=== PATIENT | female | born 1995 | race African-American/Black ===

== ENCOUNTER 2022-07-18 14:33 | Inpatient (IN) | payer MEDICAID, OTHER ==
--- NOTE | 2022-07-18 16:11 | XR ---
EXAMINATION TYPE: XR chest 2V DATE OF EXAM: 07/18/2022 4:02 PM COMPARISON: None TECHNIQUE: XR chest 2V Frontal and lateral views of the chest. CLINICAL INDICATION:Female, 27 years old with history of Chest pain; FINDINGS: Lungs/Pleura: There is no evidence of pleural effusion, focal consolidation, or pneumothorax. Pulmonary vascularity: Unremarkable. Heart/mediastinum: Cardiomediastinal silhouette is unremarkable. Musculoskeletal: No acute osseous pathology. IMPRESSION: No acute cardiopulmonary disease/process.
[2022-07-18 16:23] LABS: Amphetamine Screen,Urine Not Detected (NotDetected); Barbiturate Screen,Urine Not Detected (NotDetected); Benzodiazepines Screen,Urine Not Detected (NotDetected); Cocaine Screen,Urine Not Detected (NotDetected); Methadone Screen, Urine Not Detected (NotDetected); Opiate Screen,Urine Not Detected (NotDetected); Oxycodone Screen, Urine Not Detected (NotDetected); Phencyclidine Screen,Urine Not Detected (NotDetected); Tricyclic Antidepressant,Urine Not Detected (NotDetected); Urn Cannabinoid Scrn Detected (NotDetected)
[2022-07-18] MEDS ORDERED: IBUPROFEN ORAL SUSP 100 MG/5 ML CUP PO ONE (16:42)
--- NOTE | 2022-07-18 16:50 | ED ---
Psych HPI - General Chief Complaint: Psychiatric Symptoms Stated Complaint: EPS eval Time Seen by Provider: 07/18/22 14:58 Source: patient, EMS, RN notes reviewed Mode of arrival: EMS - History of Present Illness Initial Comments: 19-year-old female brought in by EMS for complaints of feeling suicidal she does have a history of schizophrenia she states she is hearing voices and believes people are trying to get her and her over. She states she's been suicidal and depressed for about the last 1825 hrs. Any drug or alcohol use at this time. No other current complaints or modifying factors other than some slight left- sided chest pain. MD Complaint: suicidal ideation, feels depressed, other - Related Data Home Medications Medication Instructions Recorded Confirmed Nicotine 21Mg/24Hr Patch [Habitrol] 1 patch TRANSDERM DAILY PRN 07/18/22 07/18/22 Allergies Allergy/AdvReac Type Severity Reaction Status Date / Time trazodone AdvReac Unknown Verified 07/18/22 17:24 Review of Systems ROS Statement: Those systems with pertinent positive or pertinent negative responses have been documented in the HPI. ROS Other: All systems not noted in ROS Statement are negative. Past Medical History Past Medical History: No Reported History History of Any Multi-Drug Resistant Organisms: None Reported Past Surgical History: Orthopedic Surgery Past Psychological History: Bipolar, Depression, Schizophrenia Smoking Status: Current every day smoker Past Alcohol Use History: Abuse Past Drug Use History: Cocaine, Marijuana General Exam - General Exam Comments Initial Comments: This is a well-developed well-nourished awake alert oriented 4 female Limitations: no limitations General appearance: alert, anxious Head exam: Present: atraumatic, normocephalic, normal inspection Eye exam: Present: normal appearance, PERRL, EOMI. Absent: scleral icterus, conjunctival injection, periorbital swelling ENT exam: Present: normal exam, mucous membranes moist Neck exam: Present: normal inspection, full ROM, other (No stridor JVD or bruits). Absent: tenderness, meningismus, lymphadenopathy Respiratory exam: Present: normal lung sounds bilaterally, chest wall tenderness. Absent: respiratory distress, wheezes, rales, rhonchi, stridor Cardiovascular Exam: Present: regular rate, normal rhythm, normal heart sounds. Absent: systolic murmur, diastolic murmur, rubs, gallop, clicks GI/Abdominal exam: Present: soft, normal bowel sounds. Absent: distended, tenderness, guarding, rebound, rigid Extremities exam: Present: normal inspection, full ROM, normal capillary refill. Absent: tenderness, pedal edema, joint swelling, calf tenderness Back exam: Present: normal inspection Neurological exam: Present: alert, oriented X3, CN II-XII intact Psychiatric exam: Present: depressed, flat affect, suicidal ideation Skin exam: Present: warm, dry, intact, normal color. Absent: rash Course Vital Signs 07/18/22 14:48 Pulse Rate 87 Respiratory 18 Rate Blood Pressure 134/91 O2 Sat by Pulse 94 L Oximetry Medical Decision Making - Medical Decision Making The patient was evaluated by the EPS service and will be admitted for inpatient evaluation and treatment - Lab Data Lab Results 07/18/22 07/18/22 Range/Units 16:00 16:00 Urine HCG, Qual Not Detected (Not Detectd) Urine Opiates Screen Not Detected (NotDetected) Ur Oxycodone Screen Not Detected (NotDetected) Urine Methadone Screen Not Detected (NotDetected) Ur Propoxyphene Screen Not Detected (NotDetected) Ur Barbiturates Screen Not Detected (NotDetected) U Tricyclic Antidepress Not Detected (NotDetected) Ur Phencyclidine Scrn Not Detected (NotDetected) Ur Amphetamines Screen Not Detected (NotDetected) U Methamphetamines Scrn Not Detected (NotDetected) U Benzodiazepines Scrn Not Detected (NotDetected) Urine Cocaine Screen Not Detected (NotDetected) U Marijuana (THC) Screen Detected H (NotDetected) - EKG Data -: EKG Interpreted by Ks EKG shows normal: sinus rhythm, axis, intervals, QRS complexes, ST-T waves (Normal sinus rhythm rate is 67. Interval 148 QRS rate is 74 QT since QTC 395/410 st-t wave changes) Rate: normal - Radiology Data Radiology results: report reviewed (Imaging unremarkable wheezing. Report), image reviewed Disposition Clinical Impression: Depression, Suicidal ideation Disposition: TRANSFER TO PSYCH HOSP/UNIT Condition: Stable Referrals: None,Stated [Primary Care Provider] - 1-2 days Decision Date: 07/18/22 Decision Time: 18:18
[2022-07-18] MEDS ORDERED: ACETAMINOPHEN TAB 325 MG TAB PO STA (19:22)
[2022-07-18] MEDS ORDERED: MAGNESIUM HYDROXIDE 2,400 MG/10 ML CUP PO PRN (21:45)
[2022-07-18] MEDS ORDERED: MAG HYDROX/AL HYDROX/SIMETH 30 ML CUP PO PRN (21:45)
[2022-07-18] MEDS ORDERED: OLANZapine 5 MG TAB PO PRN (21:47)
[2022-07-18] MEDS ORDERED: OLANZapine 10 MG VIAL IM PRN (21:47)
[2022-07-18] MEDS ORDERED: hydrOXYzine HCL 50 MG/ML 1 ML VIAL IM PRN (21:49)
[2022-07-18 23:37] LABS: Appearance,Urine Cloudy (Clear); Bacteria,Urine Occasional /hpf; Bilirubin,Urine Negative (Negative); Blood,Urine Large (Negative); Color,Urine Yellow; Glucose,Urine (UA) Negative (Negative); Ketones,Urine 2+ (Negative); Leukocyte Esterase,Urine Large (Negative); Mucus,Urine Few /hpf; Nitrite,Urine Negative (Negative); PH, Urine 5.5 (5.0-8.0); Protein,Urine 1+ (Negative); RBC,Urine >182 /hpf (0-5); Specific Gravity,Urine 1.022 (1.001-1.035); Squamous Epithelial Cell,Urine 33 /hpf (0-4); WBC,Urine 88 /hpf (0-5)
--- NOTE | 2022-07-19 05:59 | P.MDCNMH ---
History of Present Illness H&P Date: 07/19/22 Chief Complaint: Medical evaluation 27-year-old female with schizophrenia Patient comes in due to acute psychosis with hallucinations and suicidal ideation. Currently denies any medical concerns denies any fevers chills nausea vomiting chest pain trouble breathing abdominal pain denies any urinary or bowel habit changes. She is currently on her period. Workup in the ED urine sample was contaminated Patient admits to tobacco smoking, denies any illicit drugs or alcohol Review of Systems Pertinent positives as noted in HPI. All other systems were reviewed and are negative Past Medical History Past Medical History: No Reported History History of Any Multi-Drug Resistant Organisms: None Reported Past Surgical History: Orthopedic Surgery Past Psychological History: Bipolar, Depression, Schizophrenia Smoking Status: Current every day smoker Past Alcohol Use History: Abuse Past Drug Use History: Cocaine, Marijuana - Past Family History Family Additional Family Medical History / Comment(s): Denies any premature CAD in the family Medications and Allergies Home Medications Medication Instructions Recorded Confirmed Type Nicotine 21Mg/24Hr Patch [Habitrol] 1 patch TRANSDERM DAILY PRN 07/18/22 07/18/22 History Allergies Allergy/AdvReac Type Severity Reaction Status Date / Time trazodone AdvReac Unknown Verified 07/18/22 22:05 Physical Exam Vitals: Vital Signs Temp Pulse Pulse Resp BP BP Pulse Ox 07/18/22 22:30 97.1 F L 70 15 104/67 99 07/18/22 14:48 87 18 134/91 94 L Intake and Output 07/18/22 07/18/22 07/19/22 14:59 22:59 06:59 Other: Weight 77.111 kg 63.106 kg Constitutional: No acute distress, patient is sleepy but arousable Eyes: Anicteric sclerae, moist conjunctiva, Pupils equal round reactive to light ENMT: NC/AT Oropharynx clear, no erythema, or exudates Neck: Supple, no masses, or JVD No carotid bruits No thyromegaly Lungs: Clear to auscultation Clear to percussion Normal respiratory effort, no accessory muscle use Cardiovascular: Heart regular in rate and rhythm, No murmurs, gallops, or rubs No peripheral edema Abdominal: Soft Nontender, no guarding, rebound or rigidity Abdomen moving with respiration Normoactive bowel sounds No hepatomegaly, No splenomegaly No palpable mass No abdominal wall hernia noted Skin: Normal temperature, tone, texture, turgor No induration No subcutaneous nodules No rash, lesions No ulcers Extremities: No digital cyanosis No clubbing Pedal pulses intact and symmetrical Radial pulses intact and symmetrical No calf tenderness Psychiatric: Alert and oriented to person, place and time Neuro Muscles Strength 5/5 in all 4 extremities Sensation to light touch grossly present throughout Cranial nerves II-XII grossly intact No focal sensory deficits Lymphatics: no palpable cervical or supraclavicular , or inguinal lymph nodes Cranial Nerve Examination - Cranial Nerves Cranial Nerve II- Optic: Intact Cranial Nerve III- Oculomotor: Intact Cranial Nerve IV- Trochlear: Intact Cranial Nerve V- Trigeminal: Intact Cranial Nerve - Abducens: Intact Cranial Nerve VII- Facial: Intact Cranial Nerve VIII- Auditory: Intact Cranial Nerve IX- Glossopharyngeal: Intact Cranial Nerve X- Vagus: Intact Cranial Nerve XI- Accessory: Intact Cranial Nerve XII- Hypoglossal: Intact Results Labs: Abnormal Lab Results - Last 24 Hours (Table) 07/18/22 07/18/22 Range/Units 16:00 21:45 Urine Appearance Cloudy H (Clear) Urine Protein 1+ H (Negative) Urine Ketones 2+ H (Negative) Urine Blood Large H (Negative) Ur Leukocyte Esterase Large H (Negative) Urine RBC >182 H (0-5) /hpf Urine WBC 88 H (0-5) /hpf Urine WBC Clumps Few H (None) /hpf Ur Squamous Epith Cells 33 H (0-4) /hpf Urine Bacteria Occasional H (None) /hpf Urine Mucus Few H (None) /hpf U Marijuana (THC) Screen Detected H (NotDetected) Assessment and Plan Assessment: Acute psychosis Schizophrenia Suicidal ideation Management per psych Tobacco smoking Counseled to quit smoking Nicotine replacement therapy No medical concerns reported by the patient Follow-up labs Thank you for allowing us to participate in the care of this patient. We will follow peripherally. Do not hesitate to contact us with questions. Someone can be reached from the [facility] hospitalist group at all hours of the day at [phone].
[2022-07-19] MEDS: NICOTINE 7MG/24HR PATCH TRANSDERM SCH (10:08)
[2022-07-19] MEDS ORDERED: ARIPiprazole 5 MG TAB PO STA (10:38)
[2022-07-19 11:19] LABS: Basophils % (A) 1 %; Eosinophils % (A) 1 %; HCT 47.3 % (34.0-46.0); HGB 14.7 gm/dL (11.4-16.0); Lymphocytes # (A) 0.8 k/uL (1.0-4.8); Lymphocytes % (A) 34 %; MCH 25.1 pg (25.0-35.0); MCHC 31.1 g/dL (31.0-37.0); MCV 80.9 fL (80.0-100.0); Monocytes # (A) 0.1 k/uL (0-1.0); Monocytes % (A) 6 %; Neutrophils # (A) 1.2 k/uL (1.3-7.7); Neutrophils % (A) 54 %; Platelet Count 183 k/uL (150-450); RBC 5.84 m/uL (3.80-5.40); RDW 13.1 % (11.5-15.5); WBC 2.2 k/uL (3.8-10.6)
[2022-07-19 11:42] LABS: ALT 15 U/L (4-34); AST 26 U/L (14-36); African American GFR (CKD) >90 (>60 ml/min/1.73 sqM); Albumin 4.8 g/dL (3.5-5.0); Alkaline Phosphatase 64 U/L (38-126); Anion Gap 12 mmol/L; Blood Urea Nitrogen 15 mg/dL (7-17); Calcium 9.4 mg/dL (8.4-10.2); Carbon Dioxide 26 mmol/L (22-30); Chloride 102 mmol/L (98-107); Glucose 81 mg/dL (74-99); Non-African American GFR(CKD) >90 (>60 ml/min/1.73 sqM); Potassium 4.6 mmol/L (3.5-5.1); Sodium 140 mmol/L (137-145); Total Bilirubin 0.7 mg/dL (0.2-1.3); Total Protein 8.5 g/dL (6.3-8.2)
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
[2022-07-19] MEDS: hydrOXYzine pamoate 25 MG CAP PO PRN ×2 (14:59→21:02)
[2022-07-19] MEDS: cloNIDine HCL 0.1 MG TAB PO SCH (21:02)
[2022-07-20] MEDS: ACETAMINOPHEN TAB 325 MG TAB PO PRN ×2 (04:47→13:52)
[2022-07-20] MEDS: NICOTINE 7MG/24HR PATCH TRANSDERM SCH (08:11)
[2022-07-20] MEDS: cloNIDine HCL 0.1 MG TAB PO SCH ×2 (09:50→20:57)
[2022-07-20 10:28] LABS: Basophils % (A) 1 %; Eosinophils % (A) 1 %; HCT 44.3 % (34.0-46.0); HGB 14.1 gm/dL (11.4-16.0); Lymphocytes # (A) 0.8 k/uL (1.0-4.8); Lymphocytes % (A) 43 %; MCH 25.6 pg (25.0-35.0); MCHC 31.7 g/dL (31.0-37.0); MCV 80.6 fL (80.0-100.0); Mean Platelet Volume 9.9; Monocytes # (A) 0.2 k/uL (0-1.0); Monocytes % (A) 8 %; Neutrophils # (A) 0.8 k/uL (1.3-7.7); Neutrophils % (A) 45 %; Platelet Count 156 k/uL (150-450); WBC 1.9 k/uL (3.8-10.6)
--- NOTE | 2022-07-20 11:55 | P.PN ---
Progress Note - Text Progress Note Date: 07/20/22 Interval History: Patient was seen wandering the hallways and was directable and agreeable to speak with development writer in the office. Currently, the patient continues to report paranoid and bizarre delusions. She continues to feel like people are inserting thoughts into her head as well as controlling her body and emotions. She continues to report auditory hallucinations that tell her derogatory comments and statements in things to her. She denies any command type hallucinations. She reports no visual hallucinations. She denies any suicidal or homicidal ideation, intention, and/or plan. She reports mild sedation as a side effect of her medication. She reports no issues regarding her sleep or her appetite. She has been attending groups. Mental Status Exam: General Appearance: Patient appears to be stated age is alert, directable, and cooperative. Patient has a heart tattoo underneath her left eye. Behavior: Patient is calmly seated without any agitated behavior. Speech: Patient's speech is fluent and nonpressured. Mood/Affect: Mood is improving mildly, affect is congruent and constricted. Suicidality/Homicidality: Patient denies both suicidal and homicidal ideation. Perceptions: Patient denies any visual hallucinations but continues to endorse auditory hallucinations. Though content/process: The patient endorses multiple delusions including paranoia, thought insertion, ideas of reference, and control. Memory and concentration: AOX3, grossly intact for the purposes of this session Judgment and insight: Improving mildly Vital Signs Temp 97.3 F L 07/20/22 06:40 Pulse 101 H 07/20/22 09:52 Resp 18 07/20/22 06:40 BP 140/84 07/20/22 09:52 Pulse Ox 98 07/20/22 06:40 FiO2 Laboratory Results - Last 24 Hours 07/19/22 07/19/22 07/20/22 10:48 10:48 09:41 WBC 1.9 L RBC 5.50 H Hgb 14.1 Hct 44.3 MCV 80.6 MCH 25.6 MCHC 31.7 RDW 13.0 Plt Count 156 MPV 9.9 Neutrophils % 45 Lymphocytes % 43 Monocytes % 8 Eosinophils % 1 Basophils % 1 Neutrophils # 0.8 L Lymphocytes # 0.8 L Monocytes # 0.2 Eosinophils # 0.0 Basophils # 0.[address] Glu mg/dL 119 Hemoglobin A1c 5.8 TSH 0.982 Assessment Schizoaffective disorder, bipolar type Cocaine use disorder Tobacco use disorder Alcohol use disorder Cannabis use disorder Rule out PTSD Plan: -Patient continues to meet criteria for inpatient psychiatric admission for symptom stabilization and safety. Patient has signed adult voluntary form and medication consent and was placed in patient's chart. -TSH, B12, folate ordered -Medications: Continue Catapres 0.1 mg by mouth twice a day for PTSD We will start lithium 450 mg by mouth at bedtime for management of mood/psychotic symptoms. We are limited in our ability to utilize antipsychotics due to the patient's neutropenia. -When necessary Vistaril for agitation/aggression. -NRT - nicotine patch -SW on board for discharge planning. Encouraged the patient to participate in milieu.
[2022-07-20] MEDS: hydrOXYzine pamoate 25 MG CAP PO PRN (17:16)
[2022-07-20] MEDS ORDERED: LITHIUM CARBONATE ER 450 MG TABLET.ER PO SCH (21:00)
[2022-07-21] MEDS: ACETAMINOPHEN TAB 325 MG TAB PO PRN ×4 (01:48→20:59)
[2022-07-21] MEDS: hydrOXYzine pamoate 25 MG CAP PO PRN ×2 (01:48→20:59)
[2022-07-21] MEDS: NICOTINE 7MG/24HR PATCH TRANSDERM SCH (08:28)
[2022-07-21] MEDS: cloNIDine HCL 0.1 MG TAB PO SCH ×2 (08:29→20:15)
--- NOTE | 2022-07-21 10:27 | P.PN ---
Progress Note - Text Progress Note Date: 07/21/22 Interval History: Patient was seen wandering the hallways and was directable and agreeable to speak with technical report writer in the office. Currently, the patient is not reporting any suicidal or homicidal ideation however continues to endorse auditory hallucinations and paranoid delusions. She has been adherent with her medications and is not reporting any significant side effects at this time. The patient discussed that she does engage in unprotected sex. Furthermore, the patient does report a history of IV drug use. She is agreeable to HIV testing and states that she has never been tested before. She otherwise reports no issues regarding her sleep or her appetite. She has been attending groups level of participation. Mental Status Exam: General Appearance: Patient appears to be stated age is alert, directable, and cooperative. Patient has a heart tattoo underneath her left eye. Behavior: Patient is calmly seated without any agitated behavior. Speech: Patient's speech is fluent and nonpressured. Mood/Affect: Mood is improving mildly, affect is congruent and constricted. Suicidality/Homicidality: Patient denies both suicidal and homicidal ideation. Perceptions: Patient denies any visual hallucinations but continues to endorse auditory hallucinations. Though content/process: The patient endorses multiple delusions including paranoia, thought insertion, ideas of reference, and control. Memory and concentration: AOX3, grossly intact for the purposes of this session Judgment and insight: Improving mildly Vital Signs Temp 97.8 F 07/21/22 07:18 Pulse 84 07/21/22 07:18 Resp 14 07/21/22 07:18 BP 114/60 07/21/22 07:18 Pulse Ox 98 07/20/22 06:40 FiO2 Laboratory Results - Last 24 Hours 07/20/22 07/20/22 07/20/22 09:41 09:41 09:41 WBC 1.9 L RBC 5.50 H Hgb 14.1 Hct 44.3 MCV 80.6 MCH 25.6 MCHC 31.7 RDW 13.0 Plt Count 156 MPV 9.9 Neutrophils % 45 Lymphocytes % 43 Monocytes % 8 Eosinophils % 1 Basophils % 1 Neutrophils # 0.8 L Lymphocytes # 0.8 L Monocytes # 0.2 Eosinophils # 0.0 Basophils # 0.0 Vitamin B12 464.0 Folate 13.40 TSH 0.906 Assessment Schizoaffective disorder, bipolar type Cocaine use disorder Tobacco use disorder Alcohol use disorder Cannabis use disorder Rule out PTSD Plan: -Patient continues to meet criteria for inpatient psychiatric admission for symptom stabilization and safety. Patient has signed adult voluntary form and medication consent and was placed in patient's chart. -HIV test ordered. -Medications: Continue Catapres 0.1 mg by mouth twice a day for PTSD Increase lithium to 450 mg by mouth twice a day for management of mood/psychotic symptoms. We are limited in our ability to utilize antipsychotics due to the patient's neutropenia. [place] level ordered for Sunday. -When necessary Vistaril for agitation/aggression. -NRT - nicotine patch -SW on board for discharge planning. Encouraged the patient to participate in milieu.
[2022-07-21] MEDS: LITHIUM CARBONATE ER 450 MG TABLET.ER PO SCH (20:15)
[2022-07-22] MEDS: NICOTINE 7MG/24HR PATCH TRANSDERM SCH (08:31)
[2022-07-22] MEDS: ACETAMINOPHEN TAB 325 MG TAB PO PRN ×3 (08:32→20:51)
[2022-07-22] MEDS: cloNIDine HCL 0.1 MG TAB PO SCH ×2 (08:33→20:51)
[2022-07-22] MEDS: LITHIUM CARBONATE ER 450 MG TABLET.ER PO SCH ×2 (08:33→20:51)
--- NOTE | 2022-07-22 12:27 | P.PN ---
Progress Note - Text Progress Note Date: 07/22/22 Clinical Problems: Schizoaffective disorder bipolar type, cocaine use disorder, tobacco use disorder, alcohol use disorder, cannabis use disorder, rule out PTSD. Interim history: I reviewed the medical record and interviewed the patient. The patient denied problems or concerns other than where she would live after discharge. She requested assistance and searching for studio apartments in the [place] area. She denied feeling depressed or having thoughts of or suicide. She denied experiencing auditory, visual or olfactory hallucinations. She denied symptoms of alcohol withdrawal and showed no signs of alcohol withdrawal. She apparently attends therapeutic groups and activities. She sleeps 8 hours last night. Mental status exam: She presented as a thin casually groomed 27-year-old [place] female who was pleasant on approach. She made eye contact and attempted to interview. She had no prominent physical abnormalities. She had a blunted facial expression. She showed no abnormality of psychomotor activity. Her speech was spontaneous with decreased volume. Her affect was blunted but appropriate. She denied suicidal ideation, wishes or homicidal ideation. She denied feeling hopeless, helpless or worthless. Her thinking was organized and goal directed. She denied hallucinations did not appear to be responding to internal stimuli. Assessment: She appears much improved from admission with an apparent decrease in depression, suicidal thoughts and psychotic symptoms. Plan: Continue inpatient treatment. Safety precautions. Continue current psychotropic medications-lithium carbonate 4 and 50 mg twice a day and Vistaril 50 mg when necessary IM when necessary for anxiety. Nicotine for smoking cessation. Social work to coordinate discharge and aftercare. Encouraged continued participation in therapeutic groups and activities. Evaluate clinical status response treatment on a daily basis.
[2022-07-23] MEDS: cloNIDine HCL 0.1 MG TAB PO SCH ×2 (08:02→21:01)
[2022-07-23] MEDS: LITHIUM CARBONATE ER 450 MG TABLET.ER PO SCH ×2 (08:02→21:01)
[2022-07-23] MEDS: NICOTINE 7MG/24HR PATCH TRANSDERM SCH (08:03)
--- NOTE | 2022-07-23 13:42 | P.PN ---
Progress Note - Text Progress Note Date: 07/23/22 Clinical Problems: Schizoaffective disorder bipolar type, cocaine use disorder, tobacco use disorder, alcohol use disorder, cannabis use disorder, rule out PTSD. Interim history: I reviewed the medical record and interviewed the patient. She complained of sore throat and fever and chills. Her temperature was 97.9, pulse 61 and blood pressure 102/64. Her coronavirus PCR from a 07/21/2022 was negative She apparently attends therapeutic groups and activities. She sleeps 8 hours last night. Mental status exam: She presented as a thin casually groomed 27-year-old [place] female who was pleasant on approach. She made eye contact and attempted to interview. She had no prominent physical abnormalities. She had a blunted facial expression. She showed no abnormality of psychomotor activity. Her speech was spontaneous with decreased volume. Her affect was blunted but appropriate. She denied suicidal ideation, wishes or homicidal ideation. She denied feeling hopeless, helpless or worthless. Her thinking was organized and goal directed. She denied hallucinations did not appear to be responding to internal stimuli. Assessment: She has subjective complaints of sore throat fever and chills. Coronavirus negative. Plan: Continue inpatient treatment. Safety precautions. Continue current psychotropic medications-lithium carbonate 450 mg twice a day and Vistaril 50 mg when necessary IM when necessary for anxiety. Nicotine for smoking cessation. Social work to coordinate discharge and aftercare. Encouraged continued participation in therapeutic groups and activities. Evaluate clinical status response treatment on a daily basis.
[2022-07-23] MEDS: ACETAMINOPHEN TAB 325 MG TAB PO PRN (16:23)
[2022-07-24] MEDS: ACETAMINOPHEN TAB 325 MG TAB PO PRN ×2 (03:46→18:59)
[2022-07-24] MEDS: LITHIUM CARBONATE ER 450 MG TABLET.ER PO SCH ×2 (08:49→21:18)
[2022-07-24] MEDS: NICOTINE 7MG/24HR PATCH TRANSDERM SCH (08:50)
[2022-07-24] MEDS: cloNIDine HCL 0.1 MG TAB PO SCH ×2 (08:50→21:18)
[2022-07-24 10:09] LABS: Basophils % (A) 1 %; Eosinophils # (A) 0.1 k/uL (0-0.7); Eosinophils % (A) 2 %; HCT 44.2 % (34.0-46.0); Lymphocytes # (A) 0.9 k/uL (1.0-4.8); Lymphocytes % (A) 28 %; MCH 25.6 pg (25.0-35.0); MCHC 31.6 g/dL (31.0-37.0); MCV 80.9 fL (80.0-100.0); Mean Platelet Volume 10.2; Monocytes # (A) 0.2 k/uL (0-1.0); Monocytes % (A) 5 %; Neutrophils % (A) 62 %; Platelet Count 162 k/uL (150-450); RBC 5.46 m/uL (3.80-5.40); RDW 13.1 % (11.5-15.5); WBC 3.3 k/uL (3.8-10.6)
--- NOTE | 2022-07-24 11:29 | P.PN ---
Progress Note - Text Progress Note Date: 07/24/22 Interval History: Patient was seen wandering the hallways and was directable and agreeable to speak with bond writer in the office. Currently, the patient is not reporting any suicidal or homicidal ideation however continues to endorse auditory hallucinations and paranoid delusions. The patient reports that she continues to feel that people are controlling her thoughts but less so than before. She reports an improvement in sleep and an improvement in appetite. She does ex press concerns as to where she would be going upon discharge. She denies any anger or mood lability. She denies any confrontation with staff or peers. She has been adherent with her medications and is not endorsing any significant side effects at this time. She is denying any suicidal or homicidal ideation, intention, and/or plan. Mental Status Exam: General Appearance: Patient appears to be stated age is alert, directable, and cooperative. Patient has a heart tattoo underneath her left eye. Behavior: Patient is calmly seated without any agitated behavior. Speech: Patient's speech is fluent and nonpressured. Mood/Affect: Mood is improving mildly, affect is congruent and constricted. Suicidality/Homicidality: Patient denies both suicidal and homicidal ideation. Perceptions: Patient denies any visual hallucinations but continues to endorse auditory hallucinations. Though content/process: The patient continues to endorse delusional thoughts of control however less forthcoming with her delusions. Memory and concentration: AOX3, grossly intact for the purposes of this session Judgment and insight: Improving mildly Vital Signs Temp 97.2 F L 07/24/22 08:49 Pulse 61 07/23/22 09:00 Resp 20 07/24/22 08:49 BP 116/78 07/24/22 08:49 Pulse Ox 99 07/23/22 09:00 FiO2 Laboratory Results - Last 24 Hours 07/24/22 07/24/22 09:11 09:11 WBC 3.3 L RBC 5.46 H Hgb 14.0 Hct 44.2 MCV 80.9 MCH 25.6 MCHC 31.6 RDW 13.1 Plt Count 162 MPV 10.2 Neutrophils % 62 Lymphocytes % 28 Monocytes % 5 Eosinophils % 2 Basophils % 1 Neutrophils # 2.0 Lymphocytes # 0.9 L Monocytes # 0.2 Eosinophils # 0.1 Basophils # 0.0 [place] 0.7 Assessment Schizoaffective disorder, bipolar type Cocaine use disorder Tobacco use disorder Alcohol use disorder Cannabis use disorder Rule out PTSD Plan: -Patient continues to meet criteria for inpatient psychiatric admission for symptom stabilization and safety. Patient has signed adult voluntary form and medication consent and was placed in patient's chart. -HIV test ordered. Awaiting results. -Medications: Continue Catapres 0.1 mg by mouth twice a day for PTSD Continue [place] 450 mg by mouth twice a day for management of mood/psychotic symptoms. [place] level 0.7. We will hold at this dose. We are limited in our ability to utilize antipsychotics due to the patient's neutropenia. Mild improvement on recheck. -When necessary Vistaril for agitation/aggression. -NRT - nicotine patch -SW on board for discharge planning. Encouraged the patient to participate in milieu.
[2022-07-25] MEDS: cloNIDine HCL 0.1 MG TAB PO SCH (08:23)
[2022-07-25] MEDS: LITHIUM CARBONATE ER 450 MG TABLET.ER PO SCH (08:23)
[2022-07-25] MEDS: NICOTINE 7MG/24HR PATCH TRANSDERM SCH (08:24)
[2022-07-25 11:05] LABS: HIV-1 RNA Not detected (Not detected)
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
[2022-07-25 15:12] VITALS: BP 100/64; PULSE 87; RESP 16; TEMP 98.1
== END 2022-07-25 14:30 | disposition home or self-care (01) | DRG 885 ==
LOC: EC 14:33 → 3MHU 21:40
PROVIDERS: ADMIT Psychiatry & Neurology Psychiatry; ATTEND Psychiatry & Neurology Psychiatry
DX: F25.0 Schizoaffective disorder, bipolar type (principal); R45.851 Suicidal ideations; D70.9 Neutropenia, unspecified; F10.10 Alcohol abuse, uncomplicated; F12.10 Cannabis abuse, uncomplicated; F14.10 Cocaine abuse, uncomplicated; F17.210 Nicotine dependence, cigarettes, uncomplicated; F43.10 Post-traumatic stress disorder, unspecified; Z59.00 Homelessness unspecified; Z63.72 Alcoholism and drug addiction in family; Z79.899 Other long term (current) drug therapy; Z81.1 Family history of alcohol abuse and dependence; Z91.51 Personal history of suicidal behavior; Z56.0 Unemployment, unspecified; Z20.822 Contact with and (suspected) exposure to COVID-19
CPT/HCPCS: 71046; 80053; 80178; 80306; 81001; 81025; 82075; 82607; 82746; 83036; 84443; 85025; 87535; 87635; 93005

== ENCOUNTER 2022-08-05 23:59 | Inpatient (IN) | payer MEDICAID, OTHER ==
--- NOTE | 2022-08-06 01:46 | ED ---
Psych HPI - General Chief Complaint: Psychiatric Symptoms Stated Complaint: Mental Health, ETOH Time Seen by Provider: 08/06/22 00:59 Source: patient, police, RN notes reviewed, old records reviewed Mode of arrival: ambulatory Limitations: no limitations - History of Present Illness Initial Comments: This is a 19-year-old female presenting with alcohol intoxication and history of drug abuse. Patient comes in under police escort for evaluation regards to self harming behavior. A she was hitting her head against the wall. Patient also making suicidal threats MD Complaint: suicidal ideation, feels depressed -: minutes(s) Associated Psychiatric Symptoms: depression, suicidal ideation Quality: constant Improves With: none Worsens With: alcohol Context: significant life stressor Associated Symptoms: denies other symptoms Treatments Prior to Arrival: placed on mental health hold If Self Harm: admits thoughts of self harm, self-inflicted trauma - Related Data Previous Rx's Medication Instructions Recorded [place] Carbonate ER [Lithobid] 450 mg PO BID 15 Days tab 07/25/22 cloNIDine HCL [Catapres] 0.1 mg PO BID 15 Days tab 07/25/22 Allergies Allergy/AdvReac Type Severity Reaction Status Date / Time trazodone AdvReac Unknown Verified 08/06/22 00:41 Review of Systems ROS Statement: Those systems with pertinent positive or pertinent negative responses have been documented in the HPI. ROS Other: All systems not noted in ROS Statement are negative. Past Medical History Past Medical History: No Reported History History of Any Multi-Drug Resistant Organisms: None Reported Past Surgical History: Orthopedic Surgery Past Psychological History: Bipolar, Depression, Schizophrenia Smoking Status: Current every day smoker Past Alcohol Use History: Abuse Past Drug Use History: Cocaine, Marijuana - Past Family History Family Additional Family Medical History / Comment(s): Denies any premature CAD in the family General Exam Limitations: no limitations General appearance: alert, in no apparent distress Head exam: Present: atraumatic, normocephalic, normal inspection Eye exam: Present: normal appearance, PERRL, EOMI. Absent: scleral icterus, conjunctival injection, periorbital swelling ENT exam: Present: normal exam, mucous membranes moist Neck exam: Present: normal inspection. Absent: tenderness, meningismus, lymphadenopathy Respiratory exam: Present: normal lung sounds bilaterally. Absent: respiratory distress, wheezes, rales, rhonchi, stridor Cardiovascular Exam: Present: regular rate, normal rhythm, normal heart sounds. Absent: systolic murmur, diastolic murmur, rubs, gallop, clicks GI/Abdominal exam: Present: soft, normal bowel sounds. Absent: distended, tenderness, guarding, rebound, rigid Extremities exam: Present: normal inspection, full ROM, normal capillary refill. Absent: tenderness, pedal edema, joint swelling, calf tenderness Back exam: Present: normal inspection Neurological exam: Present: alert, oriented X3, CN II-XII intact Psychiatric exam: Present: normal affect, normal mood Skin exam: Present: warm, dry, intact, normal color. Absent: rash Course Vital Signs 08/06/22 00:36 Temperature 98.2 F Pulse Rate 73 Respiratory 22 Rate Blood Pressure 114/84 O2 Sat by Pulse 100 Oximetry - Reevaluation(s) Reevaluation #1: 08/06/22 04:51 Medical record is reviewed Reevaluation #2: 08/06/22 04:51 Medical clear for psychiatric evaluation Medical Decision Making - Medical Decision Making 27-year-old female presented today for psychiatric evaluation. Patient be admitted for psychiatric evaluation and treatment is Disposition Clinical Impression: Suicidal ideation, Alcohol use disorder, Schizoaffective disorder, bipolar type, Depression Disposition: ADMITTED IP TO THIS HOSP Condition: Fair Is patient prescribed a controlled substance at d/c from ED?: No Referrals: None,Stated [Primary Care Provider] - 1-2 days
[2022-08-06] MEDS ORDERED: MAG HYDROX/AL HYDROX/SIMETH 30 ML CUP PO PRN (06:52)
[2022-08-06] MEDS ORDERED: LORazepam 1 MG TAB PO PRN (06:52)
[2022-08-06] MEDS ORDERED: MAGNESIUM HYDROXIDE 2,400 MG/10 ML CUP PO PRN (06:52)
[2022-08-06] MEDS ORDERED: LORazepam 2 MG/ML INJ IM PRN (06:56)
[2022-08-06] MEDS ORDERED: HALOPERIDOL LACTATE 5 MG/ML 1 ML VIAL IM PRN (06:57)
[2022-08-06] MEDS ORDERED: haloperidoL 5 MG TAB PO PRN (06:57)
[2022-08-06] MEDS: NICOTINE 14MG/24HR PATCH TRANSDERM SCH (13:22)
--- NOTE | 2022-08-06 16:54 | P.HP ---
Psychiatric H&P - . H&P Date: 08/06/22 History & Physical: IDENTIFYING DATA: Patient is a single, unemployed, 27-year-old -Ang[place] female who presents to our hospital for self-harm behaviors and suicidal threats. HPI: Patient presented to the hospital on 08/06/2022 via police escort for evaluation of self-harming behavior consisting of hitting her head against the wall and also making suicidal threats. She was recently discharged from [facility] on 07/25/2022 on Tarboro ER 450 mg BID and Clonidine 0.1 mg BID. She states she did not continue these medication after discharge because she lost her bag on her way home from the hospital, so she has been without her medicati ons. She reports hearing 3 voices, reports seeing shadowy figures. She denies command auditory hallucinations. She reports she was intoxicated yesterday, started hitting her head, and was brought to the hospital. She states she is also homeless. She endorses suicidal ideation but denies plan or intent. She denies homicidal ideation. Patient denies any flight of ideas racing thoughts and increased in goal directed behavior. Patient admits to using alcohol and drinking a pint of liquor yesterday; states she does not drink daily. She reports her last cocaine use was early June. She uses marijuana daily and last smoked yesterday. She smokes tobacco about 0.5 ppd. PAST PSYCHIATRIC HISTORY: Patient states that she has a previous diagnosis of schizophrenia, bipolar disorder and polysubstance abuse. Previous medications include Abilify, Abilify Maintena, Risperdal, Tarboro, Clonidine, Trazodone. She reports at least 30 inpatient psychiatric hospitalization since 2016. She was recently hospitalized at [facility] from 07/18-07/25/2022. She was previously open with [facility] in [place] however states that she has not seen them since last October. She reports multiple attempts at suicide with the last time being in 2017 when she jumped off a bridge. PMH: Past Medical History: No Reported History History of Any Multi-Drug Resistant Organisms: None Reported Past Surgical History: Orthopedic Surgery Past Psychological History: Bipolar, Depression, Schizophrenia Smoking Status: Current every day smoker Past Alcohol Use History: Abuse Past Drug Use History: Cocaine, Marijuana ALLERGIES: as per EMR CHEMICAL DEPENDENCY HISTORY: as per HPI FAMILY PSYCHIATRIC/SUBSTANCE USE HISTORY: She does report that her father was an alcoholic. SOCIAL HISTORY: Patient was born and raised in [place], [place]. She was previously staying in [place] however is currently homeless. She has no source of income. Her mother when she was 1 years old. She reports that her father is a drug dealer. She states that she has 4 sisters and one brother however has little to no family support. She states that she first went to inpatient substance-abuse rehabilitation in 2016. The patient graduated high school and attended some college. MENTAL STATUS EXAM: General Appearance: Patient appears to be stated age, heart shaped tattoo under eye, dressed in hospital gown, fair hygiene. Behavior: Patient is seated without any agitated behavior. Speech: Patient's speech is soft, mumbled and nonpressured. Mood/Affect: Patient reports their mood is depressed, affect is congruent and c onstricted. Suicidality/Homicidality: Patient denies having any homicidal ideation intent or plan. She endorses suicidal ideation, but no intent or plan] Perceptions: Patient endorses visual hallucinations of shadows and endorses auditory hallucinations of voices. Though content/process: There is no evidence of any delusional thought content and thought process is linear and goal-directed. Memory and concentration: AOX3, grossly intact for the purposes of this session. Judgment and insight: poor STRENGTHS/WEAKNESSES: strength is that patient is resilient. Weakness is that patient has polysubstance abuse and noncompliance with treatment. INTELLECT: Average IMPRESSIONS: Schizoaffective disorder, bipolar type Cocaine use disorder Tobacco use disorder Alcohol use disorder Cannabis use disorder Rule out PTSD PLAN: -Patient is admitted under voluntary status to [facility] for stabilization of psychiatric symptoms and safety. Patient has signed adult voluntary form and is placed in patient's chart. -Medications: Restart Tarboro 450 mg by mouth twice a day for mood stabilization. -Ativan and Haldol PRN for agitation/aggression -Patient was counseled on substance abuse and desired to cut back on use -Patient was informed of the risks, benefits and side effects of the medication and patient verbally consented to taking the medications. Patient signed med consent form and was placed in chart. -Internal Medicine consult to perform medical evaluation and physical. -NRT - nicotine patch -SW on board for discharge planning. Encourage patient to participate in groups to work on coping skills. Allergies Allergy/AdvReac Type Severity Reaction Status Date / Time trazodone AdvReac Unknown Verified 08/06/22 00:41 Vital Signs Temp 97.6 F 08/06/22 08:54 Pulse 92 08/06/22 08:54 Resp 18 08/06/22 08:54 BP 114/77 08/06/22 08:54 Pulse Ox 95 08/06/22 08:54 FiO2 Intake & Output 08/05/22 08/06/22 08/06/22 18:59 06:59 18:59 Weight 80.286 kg 63.3 kg Laboratory Last Values Coronavirus (PCR) Not Detected (Not Detectd) 08/06/22 05:55 08/06/22 16:33 08/06/22 16:51
[2022-08-06] MEDS: LITHIUM CARBONATE 150 MG CAP PO SCH (20:46)
--- NOTE | 2022-08-07 03:18 | P.PN ---
Progress Note - Text Progress Note Date: 08/06/22 Attempted to see the patient on 08/06 at 2100 in the mental health unit. The patient refused to be seen or be evaluated.
[2022-08-07 06:45] VITALS: RESP 16
[2022-08-07] MEDS: LITHIUM CARBONATE 150 MG CAP PO SCH ×2 (09:13→20:25)
[2022-08-07] MEDS: NICOTINE 14MG/24HR PATCH TRANSDERM SCH (09:14)
[2022-08-07] MEDS: ACETAMINOPHEN TAB 325 MG TAB PO PRN (20:25)
[2022-08-08 06:40] VITALS: TEMP 98.1
[2022-08-08] MEDS: NICOTINE 14MG/24HR PATCH TRANSDERM SCH (09:34)
[2022-08-08] MEDS: LITHIUM CARBONATE 150 MG CAP PO SCH ×2 (09:36→20:49)
--- NOTE | 2022-08-08 12:43 | P.PN ---
Progress Note - Text Progress Note Date: 08/07/22 S&O: Patient was readmitted on 08-06-22 since she was feeling suicidal with a plan to go in front of a moving car and was banging her head against the wall since she was sleeping outside since she was intoxicated with alcohol and pot and someone one came and started to talk with her and felt people were targeting against her and called 911 and went to ER. She snorts cocaine at times. 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 Said she is on [place] and it helps well with her anxiety since age 11. Denies mood swings and said her mood has been stable. Said she hears voices of several people which tell her mean things 24 hrs a day. They don't tell her to do anything. She said this quite spontaneously. Said she also sees the pictures of animals and people. Said she gets angry easily and gets violent police were called and was in holding cell once for domestic violence. She is single and was never . Has no children. She is on SSI and does not work. Currently, she is calm and cooperative. Has adequate hygiene. No agitation or retardation. Speech is spontaneous and goal directed. Mood ia euthymic and affect is appropriate. Reports of hallucinations as noted above. But, does not have any objective signs of psychosis. She denies current suicidal and homicidal ideas. 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 She is well oriented with adequate memory concentration and general fund of knowledge. A&P: Her admission diagnosis include schizoaffective disorder bipolar type and rule out PTSD. But she insists she does not have any mood changes and said she is on lithium only for anxiety. She said she was on Abilify maintena in the past and it did not help her. Has a long history of anger issues, self abusive behavior including substance abuse. Did not exhibit any objective signs of PTSD during the examination. Her issues appear to be long-standing maladaptive coping skills including drug and alcohol abuse. However I will continue her lithium has ordered and she is willing to take it. Continue other counseling and therapy. Expected length of stay is 3-5 days.
--- NOTE | 2022-08-08 12:55 | P.PN ---
Progress Note - Text Progress Note Date: 08/08/22 S&O: Patient was seen in rounds. She said she is not feeling well today since she has left sided headache. She said she gets this kind of a headache which she calls has migraine headache on the long-term basis. Apparently she has not been getting any treatment for it. Otherwise she does not have any complaint. Today she said she cannot go to [facility] since she is not enrolled and she cannot enroll to the program since she doesn't have the computer. She said she may be able to stay with her sister in [facility]. She said she was drinking alcohol on a daily basis along with smoking pot after she was discharged from here last time. Patient has a long-standing problems with anger management, coping skills, alcohol and cannabis use disorder. She continues to deny any more changes and hallucinations. This is a black ambulatory female with adequate hygiene. She is calm and cooperative. She does not show any psychomotor agitation or retardation. Her speech is spontaneous relevant and goal-directed. Mood is mildly angry and affect is appropriate. Denies hallucinations delusional thinking suicide and homicide thoughts. She is well oriented with good memory concentration and general fund of knowledge. A&P: Her diagnosis updated as follows: Unspecified personality disorder, alcohol use disorder moderate to severe, cannabis use disorder moderate to severe. We will continue her lithium as she has been taking, continue therapy and supervision.
[2022-08-08] MEDS: ACETAMINOPHEN TAB 325 MG TAB PO PRN (20:50)
[2022-08-09] MEDS: LITHIUM CARBONATE 150 MG CAP PO SCH ×2 (08:12→20:50)
--- NOTE | 2022-08-09 12:17 | P.PN ---
Progress Note - Text Progress Note Date: 08/09/22 S&O: Patient was seen in rounds. She was laying down in her room and did not go to the groups. She said she tried to call her sister and nobody had answered yesterday. She spontaneously said she was suicidal and that is why she is laying down. She is homeless and hoped to stay with her sister. She has not shown any suicidal behavior. She said she doesn't have any place to go to. She takes her medications and did not show any behavior suggestive of psychosis, mood disorder, suicide or homicide risk. This is a black ambulatory female who is laying down in her room she has several clothes on the floor near the wall. She is calm and cooperative. Does not appear to be in any distress in spite of saying spontaneously that she is suicidal. Speech is spontaneous and goal-directed. Mood is euthymic and affect is appropriate. Denies hallucinations and delusional thinking. Also denied homicidal thoughts. Sensorium is clear A&P: Probably she is saying she is suicidal since she is homeless and does not think she can go and stay with her sister. Continue current medication and therapies.
--- NOTE | 2022-08-09 12:40 | P.PN ---
Progress Note - Text Progress Note Date: 08/09/22 Patient knocked on my door and wanted to talk to me a minute ago. She said she found [facility] and asked if she can be discharged today. It was explained to her that I cannot discharge her today since she had told me earlier that she was suicidal. She was advised we can discharge her tomorrow if she is doing okay the rest of the day. She agreed.
[2022-08-09] MEDS: ACETAMINOPHEN TAB 325 MG TAB PO PRN (20:50)
[2022-08-09 21:17] VITALS: BP 105/69; PULSE 97
[2022-08-10] MEDS: LITHIUM CARBONATE 150 MG CAP PO SCH (09:21)
[2022-08-10] MEDS: ACETAMINOPHEN TAB 325 MG TAB PO PRN (09:23)
--- NOTE | 2022-08-10 10:33 | P.DS ---
Providers Date of admission: 08/06/22 06:50 Expected date of discharge: 08/10/22 Attending physician: Israel Blank MD Consults: 08/06/22 06:52 Consult Physician Routine Consulting Provider: Daniella Samuel Consult Reason/Comments: H&P for mental health admission Do you want consulting provider notified?: Yes Primary care physician: Stated None Hospital Course: Patient had her psychiatric H&P done by and medical H&P done by on 08/06/2022. She was continued on lithium 450 mg twice a day by . She also received milieu therapy group therapy individual therapy occupational therapy and recreational therapy. Patient continued to do well. But yesterday she stayed in her room stating that she was suicidal after she found out that she cannot live with her sister. But, she still wanted to go to a safe place and was not considered to be a suicide risk. Later in the day she came to the office smiling and saying that [facility] and wanted to leave yesterday. She was counseled that she cannot be discharged and had to wait until today since she told she was suicidal earlier in the morning. She agreed with this. Today she knocked on my door and wanted to see me about discharge when I was seeing other patients. Since she has a place to live and is cheerful and denies any suicidal thoughts it was agreed to discharge her. She will have a prescription for lithium which she will collect from the pharmacy downstairs. She was advised to seek drug counseling and regular counseling to manage her coping skills better. She agreed to this. Discharge diagnoses are: Unspecified personality disorder, alcohol use disorder moderate to severe, cannabis use disorder moderate to severe. Patient Condition at Discharge: Stable Plan - Discharge Summary Discharge Rx Participant: Yes New Discharge Prescriptions: No Action [place] Carbonate ER [Lithobid] 450 mg PO BID 15 Days tab cloNIDine HCL [Catapres] 0.1 mg PO BID 15 Days tab Discharge Medication List [place] Carbonate ER [Lithobid] 450 mg PO BID 15 Days tab 07/25/22 [Rx] cloNIDine HCL [Catapres] 0.1 mg PO BID 15 Days tab 07/25/22 [Rx] Follow up Appointment(s)/Referral(s): [facility] [Outside] - 1 Week [facility] [NON-STAFF] - 1 Week Activity/Diet/Wound Care/Special Instructions: Avoid the use of street drugs and alcohol. Take all prescriptions as prescribed. When you are in need of refills on your medications, please contact your medical provider and/or outpatient psychiatrist to have this done. Please go to scheduled outpatient appointment for aftercare treatment. If symptoms return or become worse, call the crisis line at and/or go to the nearest emergency room for evaluation. Check your lithium level in the morning before taking morning dose of lithium early next week. This can be done in doctor's office, local hospital or [facility].
== END 2022-08-10 12:13 | disposition home or self-care (01) | DRG 883 ==
LOC: EC 23:59 → 3MHU 08-06 06:50
PROVIDERS: ADMIT Psychiatry & Neurology Psychiatry; ATTEND Psychiatry & Neurology Psychiatry
DX: F60.9 Personality disorder, unspecified (principal); R45.851 Suicidal ideations; F25.0 Schizoaffective disorder, bipolar type; F12.229 Cannabis dependence with intoxication, unspecified; F10.129 Alcohol abuse with intoxication, unspecified; S09.8XXA Other specified injuries of head, initial encounter; F17.210 Nicotine dependence, cigarettes, uncomplicated; F14.90 Cocaine use, unspecified, uncomplicated; F41.9 Anxiety disorder, unspecified; G43.909 Migraine, unspecified, not intractable, without status migrainosus; Z20.822 Contact with and (suspected) exposure to COVID-19; Z91.14 Patient's other noncompliance with medication regimen; Z91.19 Patient's noncompliance with other medical treatment and regimen; X83.8XXA Intentional self-harm by other specified means, initial encounter; Z79.899 Other long term (current) drug therapy; Z88.8 Allergy status to other drugs, medicaments and biological substances; Z59.00 Homelessness unspecified; Z91.51 Personal history of suicidal behavior; Z81.1 Family history of alcohol abuse and dependence; Z63.8 Other specified problems related to primary support group
CPT/HCPCS: 82075; 87635; 99285